=== PATIENT | male | born 1945 | race Caucasian/White ===

== ENCOUNTER 2023-07-29 08:31 | Emergency (ER) | payer OTHER, SELFPAY ==
[2023-07-29] VITALS (9 sets, daily range): BP systolic 156–248; BP diastolic 90–104; BMI 24.7
[2023-07-29 08:45] LABS: % Basophils 0.9 % (0-2); % Eosinophils 2.6 % (0-6); % Immature Granulocytes 0.7 % (0-0.5); % Lymphocytes 32.2 % (20.5-51.1); % Monocytes 10.2 % (1.7-9.3); % Neutrophils 53.4 % (42.2-75.2); Absolute Eosinophils 0.1 10^3/uL (0-0.7); Absolute Lymphocytes 1.5 10^3/uL (1.2-3.4); Absolute Monocytes 0.5 10^3/uL (0.1-0.6); Absolute Neutrophils 2.4 10^3/uL (1.4-6.5); Hematocrit 47.2 % (39.0-52.0); Hemoglobin 15.9 g/dL (13.0-18.0); Mean Corp Hgb Conc. 33.7 g/dL (33.0-37.0); Mean Corpuscular Hgb 30.5 pg (27.0-31.0); Mean Corpuscular Volume 90.6 fL (80.0-94.0); Mean Platelet Volume 9.4 fL (7.4-10.4); Nucleated Red Blood Cells % 0 % (-); Platelet Count 273 10^3/uL (130-400); Red Blood Cell Count 5.21 10^6/uL (4.70-6.10); Red Cell Dist. Width 13.2 % (11.5-14.5); White Blood Cell Count 4.5 10^3/uL (4.8-10.8)
--- NOTE | 2023-07-29 08:57 | ED.GENMED ---
History of Present Illness
General
Chief Complaint: Blood Pressure Problem
Source: patient
Exam Limitations: none
Time Seen by Provider: 07/29/23 08:57
Nursing documentation reviewed up to this point in time: agreed with
Travel History
Have you had any contact with someone who has COVID-19?: No
Do you have any symptoms of coronavirus? Fever > 100 degrees, chills, cough, shortness of breath, sore throat, loss of taste or smell, muscle aches, or headache?: No
History of Present Illness
History of Present Illness:
78 old male presents to the ER for evaluation of elevated blood pressure. Patient reports he has had borderline elevated blood pressure has not been treated for. He monitors his blood pressure at home and normally runs around 130s over 70s.
Yesterday he had been to check his blood pressure and it was 140s over 70s .this morning he felt 'weird,' and decided to check his blood pressure initially was 180 systolically and then went to 200 systolically. He very dizzy lightheaded and shaky.
He denies any actual headache blurred vision
He reports he is very active and runs about 80 miles a week however the past month because he is waiting to get hip replacement he is only walking. He has no chest pain or shortness of breath.
Review of Systems
Review of Systems
Allergies reviewed?: Yes
All Other Systems: ROS reviewed and negative except as documented in HPI and ROS
Constitutional: Reports no symptoms
EENT: Reports no symptoms
Respiratory: Reports no symptoms
Cardiac: Reports no symptoms
ABD/GI: Reports no symptoms
Musculoskeletal: Reports no symptoms
Skin: Reports no symptoms
Neurological: Reports dizzy; Denies headache
Hematologic/Lymphatic: Reports no symptoms
Psychiatric: Reports no symptoms
Phy Exam
General Physical Exam
General Presentation: no apparent distress
General age: appears stated age
General Skin: warm and dry
General Habitus: normal
General Mental: alert
General Hydration: appears well hydrated
Cardiovascular Exam
Cardiovascular Exam: regular rate/rhythm, normal peripheral pulses, systolic murmur and other (systolic murmur(chronic ) )
Pulmonary Exam
Pulmonary Exam: lungs clear and no respiratory distress
Neurological Exam
Neurological Exam: alert and oriented x3
Musculoskeletal Exam
Musculoskeletal Exam: full ROM
Skin Exam
Skin Exam: normal color and warm/dry
Psychiatric Exam
Psychiatric Exam: normal mood/affect
Course
Orders/Labs/Results
Orders:
Orders
07/29/23 08:38
Electrocardiogram (*1) Urgent
Reason for Study: Chest Pain
EKG- Treatment ONCE
07/29/23 08:39
Complete Blood Count/With Diff Urgent
Comprehensive Metabolic Panel Urgent
07/29/23 09:11
CT Head W/o Iv Contrast Urgent
Comment:
Reason For Exam: elevated blood pressure lightheaded
07/29/23 10:37
UA Reflex to Culture [Urinalysis Reflex To Culture] Urgent
Date Specimen was Collected: 07/29/23
Time Specimen was Collected: 10:31
Abnormal Lab Results
07/29/23
08:39
WBC 4.5 L 10^3/uL
(4.8-10.8)
Immature Gran % 0.7 H %
(0-0.5)
Monocytes % 10.2 H %
(1.7-9.3)
Glucose 124 H mg/dl
(70-99)
07/29/23 08:39
07/29/23 08:39
Vital Signs
Initial and Last Documented VS:
Initial Vital Signs
BP
248/98
07/29/23 08:35
Last Documented Vital Signs
Temp Pulse Resp BP Pulse Ox
98.1 F 56 17 193/93 95
07/29/23 08:40 05/12/24 10:45 07/29/23 10:45 07/29/23 10:30 07/29/23 10:45
Sorting Machine Operator consulted with Physician
Sorting Machine Operator consulted with physician?: Yes
Name of Physician Consulted: Parth
MDM/Problems Addressed
Differential Diagnosis Includes:
not limited to elevated blood pressure less likely intracranial hemorrhage
MDM/Problems Addressed:
Patient is a 78 old male who presented to the ER for elevated blood pressure. He has noticed that his blood pressure has been elevated over the past several days. He normally runs 140s but yesterday was elevated and this morning was elevated.
This morning he has some lightheadedness. He is very active and runs multiple miles a week. He presents awake alert no acute distress no no associated chest pain shortness of breath. No headache or blurred vision. He fell little weird this
morning which prompted him to come to the ER along with a blood pressure. He is nontoxic-appearing labs are unremarkable CAT scan head negative. He is discussed with Dr. Alba will start on blood pressure medication. Patient request however that
he be started on Benicar. This is reasonable I discussed how are close outpatient follow-up with family doctor for further reevaluation of elevated blood pressure and continued follow-up
*Radiology
Radiology exam reviewed: radiology read reviewed
*Pulse Oximetry
Patient hypoxic: no
*EKG
Interpreted by ED Provider?: Yes
Interpretation: normal
Comparison EKG: no comparison EKG present
Heart Rate: 56
Rate: bradycardiac
Rhythm: sinus
Ischemia: no ischemia
*Critical Care Note
Total Time (30-74mins, 75-104mins- exclusive of procedures): Not Applicable
ED Attending Note
-
Portions of this chart may have been created with voice recognition software.� Occasional wrong word or��sound alike� substitutions may have occurred due to the inherent limitations of voice recognition software.
Discharge Plan
Departure
Patient Disposition: Home (Routine Discharge)
Date of Disposition: 07/29/23
Time of Disposition: 11:03
Patient with high blood pressure during this ER visit?: Yes
Condition: Fair
Covid-19: Not Applicable
Discharge Problem:
Elevated blood pressure reading
Instructions: High Blood Pressure (DC), BLOOD PRESSURE
Prescriptions:
New
olmesartan [Benicar] 20 mg tablet
20 mg PO DAILY Qty: 30 0RF
No Action
finasteride 5 mg Tablet
5 mg PO DAILY
Referrals:
UNKNOWN - PT DOES,NOT KNOW [Family Provider] -
Activity Restrictions/Additional Instructions:
As discussed a prescription of Benicar was sent to your pharmacy take as directed. Follow-up closely with your family doctor the next several days for reevaluation of your symptoms and blood pressure. Return if any worsening of symptoms.
Interventions
Interventions:
*Risk Screen - Suicide Last Done: 07/29/23 08:40
*General Assessment Last Done: 07/29/23 08:40
ED- Fall Risk Assessment Last Done: 07/29/23 08:40
*ED COVID-19 Vaccine History Last Done: 07/29/23 08:40
ED- Cardiac Assessment Last Done: 07/29/23 08:45
ED- Neurological Assessment Last Done: 07/29/23 08:45
ED- Pulmonary Assessment Last Done: 07/29/23 08:45
ED-Skin Assessment Last Done: 07/29/23 08:48
Discharge Date and Time
Print Language: SETSWANA
[2023-07-29 08:58] LABS: ALT (SGPT) 18 U/L (0-50); AST (SGOT) 21 U/L (17-59); Albumin 4.5 g/dl (3.5-5.0); Alkaline Phosphatase 82 U/L (38-126); Blood Urea Nitrogen 15 mg/dl (9-20); Calcium 9.8 mg/dl (8.4-10.2); Carbon Dioxide 28 mmol/L (22-30); Chloride 102 mmol/L (98-107); Estimated Creatinine Clearance 76 ml/min; Glucose 124 mg/dl (70-99); Potassium 4.3 mmol/L (3.5-5.1); Sodium 136 mmol/L (135-145); Total Bilirubin 0.7 mg/dl (0.2-1.3); Total Protein 7.2 g/dl (6.3-8.2); eGFR > 60.00
--- NOTE | 2023-07-29 09:05 | EDRN ---
Mary Truong FIELD MANAGER in room w/ pt at this time.
[2023-07-29 10:59] LABS: Urine Albumin Negative (Neg - Trace); Urine Bilirubin Negative (Negative); Urine Character Clear (Clear); Urine Color Yellow; Urine Glucose Negative (Negative); Urine Ketone Negative (Negative); Urine Leukocyte Negative (Negative); Urine Nitrite Negative (Negative); Urine Occult Blood Negative (Negative); Urine Specific Gravity 1.015 (<1.030); Urine Urobilinogen Negative (Neg - 1+)
--- NOTE | 2023-07-29 11:20 | EDRN ---
Called pharmacist for ordered medication.
[2023-07-29] MEDS: BENICAR 20 MG PO (11:43)
== END 2023-07-29 11:50 | disposition home or self-care (01) ==
LOC: EMR 08:31
PROVIDERS: Emergency Medicine; Nurse Practitioner; EMERGENCY PHYSICIAN Emergency Medicine
DX: R03.0 Elevated blood-pressure reading, without diagnosis of hypertension (principal)
CPT/HCPCS: 99284; 70450; 80053; 81003; 85025; 93005